=== PATIENT | female | born 1935 | race Caucasian/White ===

== ENCOUNTER 2017-09-18 22:49 | Emergency (ER) | payer MEDICARE, OTHER ==
[2017-09-18] MEDS ORDERED: ASPIRIN 81 MG CHEW TAB PO ONE (23:08)
--- NOTE | 2017-09-18 23:12 | ED Physician Documentation ---
Chest Pain - HISTORIAN Historian: patient, paramedics - HPI Stated Complaint: SOA/CP 45min [employer], brought in by EMS, no meds [employer] Chief Complaint: Chest Pain Additional Information: cp sob onset approx 2014 at rest rad lt shoulder-rad now gone rates 09/02 Onset: hours (0) Timing: gradual onset Duration: waxing, waning Last known Well Date: 09/19/17 Last Known Well Time: 21:45 Context: rest Severity: mild, moderate Quality: pressure, tightness, sharp Chest Pain Radiation: shoulders Chest Pain Signs/Symptoms: dyspnea. denies: nausea, vomiting, diaphoresis, cool extremities, dizziness, tachypnea, tachycardia, hypotension Worsened By: deep breaths Relieved By: other (raising lt breast) - ROS CONST: no problems GI/: none EYES/ENT: none SKIN/ENDO: none NEURO/PSYCH: none - PAST HX VA risk factors: hypertension TAD/AAA risk factors: none Neuro deficit: none GI disease: none Lung disease: none Surgeries/Procedures: hysterectomy Allergies/Adverse Reactions: Allergies Allergy/AdvReac Type Severity Reaction Status Date / Time olanzapine [From Zyprexa] Allergy Verified 09/18/17 23:05 tomato [Tomato] Allergy Verified 09/18/17 23:05 Home Medications: Ambulatory Orders Medication Instructions Recorded Aspirin 81 mg PO D 09/18/17 Cephalexin [Keflex] 500 mg PO BID 09/18/17 Cetirizine HCl [Zyrtec] 10 mg PO D 09/18/17 Cyanocobalamin (Vitamin B-12) 1,000 mcg PO D 09/18/17 [Vitamin B-12] Ipratropium [place] 1 spray IH Q6 09/18/17 Lisinopril/Hydrochlorothiazide 1 tab PO D 09/18/17 [Zestoretic 10-12.5 mg Tablet] Montelukast Sodium [Singulair] 10 mg PO D 09/18/17 Pnv,Calcium 72/Iron/Folic Acid 1 tab PO D 09/18/17 [Preplus Ca-Fe 27 mg-FA 1 mg Tb] Potassium Chloride [Klor-Con M20] 20 meq PO D 09/18/17 Risperidone [Risperidone] 0.25 mg PO AM 09/18/17 Risperidone [Risperidone] 0.5 mg PO HS 09/18/17 Sertraline HCl 50 mg PO D 09/18/17 Topiramate [Topiramate] 50 mg PO HS 09/18/17 - SOCIAL HX Smoking History: non-smoker Alcohol Use: none Drug Use: none - FAMILY HX Family HX: none - VITAL SIGNS Vital Signs: Vital Signs Temp Pulse Resp BP Pulse Ox 97.7 F 63 16 143/66 96 09/18/17 22:50 09/18/17 22:50 09/18/17 22:50 09/18/17 22:50 09/18/17 22:50 - REVIEWED ASSESSMENTS Nursing Assessment Reviewed: Yes Vitals Reviewed: Yes ED Results Lab/Radiology - Radiology Radiology Impressions: ct reveals 6cm goitre pushing trachea to left-smaller goitre on rt - Orders Orders: ED Orders Category Date Time Status Continuous EKG monitoring Q30M Care 09/18/17 23:08 Ordered Continuous Pulse Oximetry Q30M Care 09/18/17 23:08 Ordered CHEST 2VIEW [RAD] Stat Exams 09/18/17 Ordered CBC/PLATELET/DIFF Routine Lab 09/18/17 23:08 Ordered CMP Routine Lab 09/18/17 23:08 Ordered TROPONIN I (cTnI) Stat Lab 09/18/17 23:08 Ordered Aspirin Med 09/18/17 23:08 Once 324 mg PO NOW ONE EKG WITH COMPARISON Stat Ther 09/18/17 23:08 Ordered Chest Pain Physical Exam - EXAM General Appearance: mild distress EENT: eye inspection normal Neck: nml inspection, no carotid bruit. No: JVD present, lymphadenopathy, subcutaneous emphysema Respiratory: nml breath sounds. No: no resp. distress, chest non-tender, resp.distress CVS: reg. rate & rhythm, no murmur Abdomen: soft, non-tender Skin: warm/dry, normal color. No: cyanosis, diaphoresis, jaundice, mottled Extremities: non-tender, normal range of motion, no evidence of injury, no edema Neuro: oriented X3, motor nml, sensation nml, mood/affect nml, cognition normal Discharge Clincal Impression: costo chondral chest pain, 6cm goitre plushing trachea to lt, smaller rt side goitre Referrals: Negrito Dunaway MD [Primary Care Provider] - 2 Days Comments: f/philomena/DR DUNAWAY Condition: Fair Disposition: 01 HOME, SELF-CARE Decision to Admit: NO Decision Time: 01:37
[2017-09-18 23:45] LABS: BASOPHILS % 0.5 (0.0-1.5); MEAN CORPUSCULAR HEMOGLOBIN 28.1 pg (28.0-34.0); MEAN CORPUSCULAR VOLUME 84.2 fl (80.0-100.0); MONOCYTES % 5.1 % (0.0-11.0); NEUTROPHILS # 5.2 # k/uL (1.4-7.7)
[2017-09-18 23:48] LABS: eGFR (African) > 60; eGFR (Non-African) > 60
--- NOTE | 2017-09-19 01:16 | Diagnostic Imaging Report ---
ESTEPHANIE THOMAS [facility] [address] [facility] [address] [address] Report Submission Date: Sep 18, 2017 11:34:19 PM CDT Patient Study Name: JONATHAN HOOKS Date: Sep 18, 2017 11:17:38 PM CDT Modality Type: DX Gender: F Description: CHEST : 33 Institution: [facility] Physician: ESTEPHANIE THOMAS Pa and lateral chest Clinical history : Chest pain Technique pa and lateral upright Findings: The lung freeman are clear. The lung freeman are hyperinflated. There is cardiomegaly and aortic tortuosity. There is appear mediastinal mass deviating the trachea to the left. There is no pleural effusion. There is thoracic spondylosis Impression: Hyperinflation Cardiomegaly. Superior mediastinal mass probably a goiter deviating the trachea to the left. CT of the chest is suggested Tortuous thoracic aorta Electronically signed on Sep 18, 2017 11:34:19 PM CDT by: Barney COKER
--- NOTE | 2017-09-19 01:17 | Diagnostic Imaging Report ---
ESTEPHANIE THOMAS [facility] [address] [facility] [address] [address] Report Submission Date: Sep 19, 2017 12:50:32 AM CDT Patient Study Name: JONATHAN HOOKS Date: Sep 19, 2017 12:00:45 AM CDT Modality Type: CT\SR Gender: F Description: CT CHEST W/O CONTRAST : 34 Institution: [facility] Physician: ESTEPHANIE THOMAS CT chest non contrast Date of study: 19 September 2017 CLINICAL HISTORY: chest pain x 1 hour (Hx) / ITS.REASON mass Note time : 09/19/2017 1:33:10 AM User : Gifty Ash chest pain x 1 hour (DICOM Hx) TECHNIQUE: 5 mm contiguous axial images of the chest. FINDINGS: There is a 6 cm right goiter deviating the trachea to the left. Smaller left- sided goiter is present. Aortic and great vessel calcification is present. Coronary artery calcification is present. A pectus excavatum deformity is present. There is borderline cardiomegaly. There is a right renal cyst. Lung windows no acute infiltrate. No hemothorax or pneumothorax is identified. 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
[2017-09-19] MEDS ORDERED: IBUPROFEN 200 MG TABLET PO ONE (01:32)
[2017-09-19 02:09] VITALS: BP 130/52
== END 2017-09-19 02:00 | disposition home or self-care (01) ==
LOC: ED 22:49
DX: R07.1 Chest pain on breathing (principal); E04.8 Other specified nontoxic goiter; I10 Essential (primary) hypertension; R06.02 Shortness of breath
CPT/HCPCS: 71046; 71250; 80053; 84436; 84443; 84484; 85025; 99283; 99284

== ENCOUNTER 2017-10-08 14:46 | Outpatient (CLI) | payer MEDICARE, OTHER ==
--- NOTE | 2017-10-09 09:58 | OP Clinic Progress Note ---
REASON FOR VISIT: This pleasant 82-year-old lady is seen by herself. The specifics of her getting a CT scan of her chest shows a large right-sided goiter. Nevertheless , the patient has a fairly large goiter that is predominantly a right-sided one. It significantly displaces trachea pass the midline over to the left side. There is some compression of the trachea but the tracheal compression is not severe despite the fairly significant movement off of the midline. Patient has some degree of pectus excavatum. Patient clearly at the outset and throughout the conversation feels that she has absolutely no problems with the mass being there. She clearly states several times that she swallows with no difficulty. She has had no hoarseness. She has fairly rare and occasional shortness of breath but it is fairly transient and is non-bothersome. She has reasonable exercise ability. I reviewed the CT itself in addition to the report. 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 I pointed out several times that it is possible that a later surgery would involve a more complicated surgery with some more risks. The patient has stated that she understands this each time and at least 4 times, she has stated that she prefers not to have the surgery currently if it is at all possible to avoid it. She accepts some future risks that there might be even more extensive surgery. She is understanding of this as a potential future risk issue but she clearly would prefer to take that as opposed to having fairly significant surgery at this point in time. I believe there is good understanding in this decision making. Discussions were clear. It would be reasonable to obtain thyroid function tests if they have not already been done. cc: Dr. Negrito COKER
== END 2017-10-08 14:49 ==
LOC: ENT 14:46
PROVIDERS: ATTEND Otolaryngology
DX: E04.9 Nontoxic goiter, unspecified (principal)
CPT/HCPCS: G0463